=== PATIENT | male | born 1985 | race Caucasian/White ===

== ENCOUNTER 2025-06-27 19:46 | Emergency (ER) | payer SELFPAY ==
[~2025-06-27] VITALS: Ht 172.7 cm; Wt 65.8 kg
[~2025-06-27 19:46] MED LIST: ATIVAN0.5 MG PO; ATIVAN1 MG PO; BACTRIM DS 8001 TA1 PO; CLEOCIN150 MG PO; CLINDAMYCIN HC300 MG PO; EES400 MG PO; FLOMAX0.4 MG PO; HYDROCODONE BIT1 T11 PO; HYDROMORPH0.5 MG/0.5 IV; KEFLEX500 MG PO; KROGER NIC21 MG/24 H T; Lovenox40 MG/0.4 SC; MOTRIN800 MG PO; NAPROSYN500 MG PO; NKHM PO; Peridex 473 ML473 ML PO; TEFLARO600 MG IV; TRAMADOL HCL50 MG PO; ULTRAM50 MG PO; VICODIN ES 7501 TAB PO
[2025-06-27] MEDS ORDERED: CLINDAMYCIN HC300 MG PO (20:37)
[2025-06-27] MEDS ORDERED: CLINDAMYCIN HCL 300 MG CAPSULE PO ONE (20:40)
== END 2025-06-27 20:47 | disposition home or self-care (01) ==
LOC: ED 19:46
DX: K02.9 Dental caries, unspecified (principal); R59.0 Localized enlarged lymph nodes; F17.200 Nicotine dependence, unspecified, uncomplicated; Z88.0 Allergy status to penicillin; Z98.890 Other specified postprocedural states